=== PATIENT | male | born 1985 | race African-American/Black ===

== ENCOUNTER 2017-09-19 19:11 | Emergency (ER) | payer OTHER, SELFPAY | END 2017-09-19 20:35 | disposition home or self-care (01) | LOC: ERS 19:11 | DX: M62.830 Muscle spasm of back (principal); F32.9 Major depressive disorder, single episode, unspecified; F17.290 Nicotine dependence, other tobacco product, uncomplicated; V49.9XXA Car occupant (driver) (passenger) injured in unspecified traffic accident, initial encounter | CPT/HCPCS: 99283 ==

== ENCOUNTER 2018-04-16 09:27 | Emergency (ER) | payer SELFPAY ==
--- NOTE | 2018-04-16 11:24 | RAD ---
3 VIEWS LUMBAR SPINE: Date: 04/16/18 HISTORY: Low back pain. COMPARISON: 03/21/11. FINDINGS: Again, there are five non-rib bearing lumbar-type vertebral bodies. The vertebral body heights are wi thin normal limits. There is suggestion of mild narrowing at the lumbosacral junction, which is stabl e from the prior study, and some of this apparent narrowing is probably related to positioning. No fr acture or subluxation is seen involving the lumbar spine. There is straightening of the normal lumbar curvature. IMPRESSION: 1. Straightening of the normal lumbar curvature. 2. No acute fracture seen involving the lumbar spine. POS: [facility]
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
== END 2018-04-16 11:42 | disposition home or self-care (01) ==
LOC: ERS 09:27
DX: M54.6 Pain in thoracic spine (principal); I10 Essential (primary) hypertension; F32.9 Major depressive disorder, single episode, unspecified
CPT/HCPCS: 72072; 72100